=== PATIENT | female | born 1955 | race Two or more races ===

== ENCOUNTER 2016-09-26 20:11 | Inpatient (IN) | payer OTHER ==
[~2016-09-26] VITALS: Ht 162.6 cm; Wt 99.8 kg
[2016-09-26] MEDS ORDERED: Glucagon 1mg Inj ONE (20:24)
[2016-09-26 20:25] VITALS: BP 35/14
[2016-09-26 20:30] VITALS: BP 54/45
[2016-09-26] MEDS ORDERED: EPINEPHrine 1mg/10ml carp IV ONE (20:44)
[2016-09-26] MEDS ORDERED: EPINEPHrine 30ml ONE (20:44)
[2016-09-26 20:54] LABS: MEAN CORPUSCULAR HEMOGLOBIN 31.9 PG (27.0-31.0); MEAN CORPUSCULAR HGB CONC 30.5 G/DL (32.0-36.0); MEAN CORPUSCULAR VOLUME 105 FL (80-99); MEAN PLATELET VOLUME 8.4 FL (6.5-10.1); PLATELET COUNT 108 K/UL (150-450); RED BLOOD COUNT 4.36 M/UL (4.20-5.40); RED CELL DISTRIBUTION WIDTH 21.4 % (11.6-14.8)
[2016-09-26] MEDS ORDERED: Levophed 4mg/4mL Inj IV ONE ×2 (20:59→21:18)
[2016-09-26 21:00] VITALS: BP 44/32
[2016-09-26 21:03] LABS: INR 1.3 (0.9-1.1); PROTHROMBIN TIME 13.8 SEC (9.30-11.50)
[2016-09-26 21:07] LABS: ALBUMIN/GLOBULIN RATIO 0.4 (1.0-2.7); CALCIUM 8.3 mg/dL (8.6-10.2); CREATININE 1.8 mg/dL (0.5-0.9); GLOMERULAR FILTRATION RATE 28.6 mL/min (>60); TOTAL PROTEIN 4.4 g/dL (6.6-8.7); TROPONIN I < 0.30 ng/mL (<=0.30)
[2016-09-26] MEDS ORDERED: Lidocaine 1% Plain 30 ml INJ ONE (21:27)
[2016-09-26 21:29] LABS: CKMB 2.4 ng/mL (< 3.8); POTASSIUM 6.2 mEQ/L (3.4-4.9)
[2016-09-26] MEDS ORDERED: DOPAMINE 400 MG/10 ML IV ONE (21:46)
--- NOTE | 2016-09-26 21:53 | Emergency Room Report ---
History of Present Illness General Chief Complaint: Altered Level of Consciousness Source: EMS Present Illness HPI 60 YO M BIBEMS for 3 days of AMS. Family not reliable historians. Patient initially not responsive to EMS, glucose 30. Was given amp dextrose and glucagon by EMS with improvement to 60. Patient became a little more alert. History of DM on paperwork with EMS. No other family bedside in ED to provide additional info. Allergies: Coded Allergies: No Known Allergies (Unverified , 09/26/16) Patient History Past Medical History: DM Past Surgical History: unable to obtain Pertinent Family History: unable to obtain Now: No Nursing Documentation-PMH Past Medical History: No History, Except For Hx Hypertension: Yes Hx Diabetes: Yes Review of Systems All Other Systems: limited - unable to obtain d/t AMS Physical Exam Vital Signs Date Time Temp Pulse Resp B/P Pulse Ox O2 Delivery O2 Flow Rate FiO2 09/26/16 20:13 105 25 35/14 87 Non-Rebreather 15.0 Sp02 EP Interpretation: reviewed, abnormal General Appearance: severe distress, lethargic, obese Head: normocephalic, atraumatic Eyes: bilateral eye EOMI, bilateral eye PERRL ENT: normal ENT inspection, no angioedema, normal voice, other - blood in oropharynx Neck: normal inspection, full range of motion, supple, no meningismus, no bony tend Respiratory: normal inspection, lungs clear, normal breath sounds, no rhonchi, no respiratory distress, no retraction, no accessory muscle use, no wheezing Cardiovascular #1: regular rate, rhythm, no edema, no gallop, no JVD, tachycardia Gastrointestinal: normal inspection, normal bowel sounds, non tender, soft, no guarding, no hernia Genitourinary: no CVA tenderness Musculoskeletal: normal inspection, back normal, normal range of motion, Charlie' s Sign negative Neurologic: normal inspection, alert, responsive, other - repeatedly moaning, moving all extremities. Not following commands Skin: no rash Procedures Critical Care Time Critical Care Time CC time 60 minutes Care for a 60 YO F BIBEMS with AMS. History of DM on metformin VS notable for tachycardia, hypotension, hypoxia. Glucose 30 in field. 60 here. DDx includes CVA, ACS, infection, metabolic abnormality, toxic ingestion, polysubstance abuse Patient is disoriented, moaning, no obvious sign of trauma. No other info available. No family are present Comprehensive physical exam completed, atraumatic. Unreliable history from patient. Labs include toxicology and chem panel, CT head when stable, EKG 12 lead and constant cardiac rhythm strip monitoring, IV established. Patient required emergent intubation EKG reveals sinus tachycardia without QRS abnormalities. Patient hypotensive, started on levophed which was maxed out, and dopamine, which was also maxed out - given thru central line empiric Abx given for sepsis Physician spent 60 minutes of direct critical care time monitoring patient's respiratory, cardiac and neurological status, reassessment, review of imaging, labs and discussion with attending hospitalist. Does not include procedures Central Line Central Line : Consent: Emergent Central Line Lumen: triple Maximal Sterile Barrier Tech: yes cap, yes mask, yes sterile gown, yes sterile gloves, yes large sterile sheet, yes hand hygiene, yes chlorhexidine prep No Max Barrier Tech Because: emergency insertion Central Line Postion: femoral (L) Complications: none Central Line Post Position: sutured, good blood return, position confirmed w / CXR Attempts: One Patient Tolerated: Well Complications: None Intubation Intubation : Consent: Emergent Intubation Method: orotracheal Tube Size (cm): 7.5 Medications: Etomidate, Rocuronium Breath Sounds after Intubation: equal Intubation Complications: no complications Post Intubation Xray: Yes Attempts: One Patient Tolerated: Well Complications: None Medical Decision Making Diagnostic Impression: Primary Impression: Hypoglycemia Additional Impressions: Hypotension Qualified Codes: I95.9 - Hypotension, unspecified Hyperkalemia SHIVANI (acute kidney injury) Altered mental status Qualified Codes: R41.0 - Disorientation, unspecified ER Course Labs: Acute respiratory acidosis with hypercarbia. No leuks. H&H stable. Glucose now stable. Troponin 0. CXR: Possible left sided PNA. ET tube in position ECG is sinus tachycardia Patient required emergent intubation for AMS/hypoxia. Required Central line for pressors - maxed out on levophed and dopamine Very poor prognosis Possible CVA but unstable for CT head at this time Endorsed to Dr Car at 1009pm for ICU EKG Diagnostic Results Rate: tachycardiac Rhythm: NSR ST Segments: no acute changes ASA given to the pt in ED: No Rhythm Strip Diag. Results EP Interpretation: yes Rate: 112 Rhythm: NSR, no PVC's, no ectopy Chest X-Ray Diagnostic Results EP Interpretation: Yes Findings: no pneumothorax, other - Cardiomegaly, ?lef sided effusion vs PNA. ET tube in satisfactory position Number of Views: 1 Last Vital Signs Date Time Temp Pulse Resp B/P Pulse Ox O2 Delivery O2 Flow Rate FiO2 09/26/16 21:20 44/32 09/26/16 20:13 105 25 87 Non-Rebreather 15.0 Status: improved Disposition: ADMITTED INPATIENT Condition: Critical Referrals: [facility],REFERRING (PCP) NOAH CONNELL M.D. Sep 26, 2016 21:53
[2016-09-26 21:56] LABS: ABG PCO2 55.7 mmHg (35.0-45.0)
[2016-09-26 21:57] LABS: ABG ALLEN TEST POSITIVE; ABG BASE EXCESS -21.5
[2016-09-26 21:59] LABS: LYMPHOCYTES % (MANUAL) 12 % (20-45); NEUTROPHILS % (MANUAL) 83 % (45-75); TOTAL CELLS COUNTED 100
[2016-09-26 22:00] VITALS: BP 102/44
[2016-09-26 22:00] LABS: BAND NEUTROPHILS % (MANUAL) 0 % (0-8); BASOPHILS % (MANUAL) 0 % (0-2); EOSINOPHILS % (MANUAL) 0 % (0-3); PLATELET ESTIMATE DECREASED; PLATELET MORPHOLOGY NORMAL
[2016-09-26] MEDS ORDERED: Sodium Polystyrene Sulfonate Enema RECTAL ONE (22:00)
[2016-09-26] MEDS ORDERED: DOPamine 400mg/250ml 250 ML IV SCH (22:00)
[2016-09-26] MEDS ORDERED: Piperacillin/Tazobactam 3.375 GM in NS 110 ML IVPB ONE (22:00)
[2016-09-26] MEDS ORDERED: Calcium Gluconate 10% 2 GM in NS 110 ML IVPB ONE (22:00)
[2016-09-26] MEDS ORDERED: Vancomycin 1.5gm/D5W 300ml 325 ML IVPB ONE (22:00)
[2016-09-26] MEDS ORDERED: Calcium Gluconate 1gm/10ml vial ONE ×2 (22:02→22:13)
[2016-09-26] MEDS ORDERED: Sodium Polystyrene Sulfonate 15gm Powder ONE ×2 (22:25→22:26)
[2016-09-26 22:30] VITALS: BP 60/47
[2016-09-26] MEDS ORDERED: Morphine Sulfate 4mg/ml Inj IVP PRN (22:30)
[2016-09-26] MEDS ORDERED: LORazepam Inj 2mg/ml 1ml IV PRN (22:30)
[2016-09-26] MEDS ORDERED: DuoNeb 0.5-3(2.5)mg/3ml neb HHN PRN (22:30)
[2016-09-26] MEDS ORDERED: Miralax 17gm pkt ORAL PRN (22:30)
[2016-09-26] MEDS ORDERED: Zosyn 3.375gm inj ONE (22:47)
[2016-09-26 22:58] LABS: APPEARANCE,URINE SLIGHTLY CLOUDY; KETONES,URINE NEGATIVE (NEGATIVE); LEUKOCYTE ESTERASE ,URINE 2+ (NEGATIVE); NITRITE,URINE NEGATIVE (NEGATIVE); PH,URINE 5 (4.5-8.0); PROTEIN,URINE 3+ (NEGATIVE); UROBILINOGEN,URINE 4 MG/DL (0.0-1.0)
[2016-09-26 23:18] LABS: BACTERIA,URINE MODERATE /HPF; SQUAMOUS EPITHELIAL CELL,UR MANY /LPF (NONE/OCC); WBC,URINE 15-20 /HPF (0 - 2)
[2016-09-26 23:19] LABS: ICTOTEST POS
[2016-09-26 23:41] LABS: ABG BASE EXCESS -25.3; ABG PCO2 45.3 mmHg (35.0-45.0)
[2016-09-26 23:42] LABS: ABG ALLEN TEST POSITIVE
[2016-09-26] MEDS ORDERED: Sodium Bicarbonate 8.4% 50ml Inj IV ONE (23:45)
[2016-09-26] MEDS ORDERED: Vancomycin 1 GM in D5W 275 ML IV SCH (23:45)
[2016-09-26] MEDS ORDERED: Amikacin 750 MG in NS 110 ML IV SCH (23:45)
[2016-09-26] MEDS ORDERED: Ertapenem 1 GM in NS 55 ML IV SCH (23:45)
[2016-09-26] MEDS ORDERED: Sodium Bicarbonate 150 ML in D5W 1000ml 1,000 ML IV SCH ×4 (23:45)
[2016-09-27] VITALS: BP 61/43
[2016-09-27] MEDS ORDERED: Levophed 4mg/4mL Inj IV ONE (00:09)
[2016-09-27] MEDS ORDERED: Amikacin Rx to dose MISC PRN (00:15)
[2016-09-27] MEDS ORDERED: Amikacin 750 MG in NS 110 ML IV ONE (00:30)
[2016-09-27 00:40] VITALS: BP 0/0
--- NOTE | 2016-09-27 02:58 | Emergency Room Report ---
Physical Exam Vital Signs Date Time Temp Pulse Resp B/P Pulse Ox O2 Delivery O2 Flow Rate FiO2 09/26/16 20:13 105 25 35/14 87 Non-Rebreather 15.0 09/26/16 20:25 103.0 09/26/16 20:30 100 Medical Decision Making Diagnostic Impression: Primary Impression: Hypoglycemia Additional Impressions: Altered mental status Qualified Codes: R41.0 - Disorientation, unspecified SHIVANI (acute kidney injury) Hypotension Qualified Codes: I95.9 - Hypotension, unspecified Hyperkalemia Cardiac arrest ER Course This patient was admitted to the ICU for hypoglycemic coma and septic shock and UTI. She was on 2 pressures, maxed out. She was just in the ICU when she lost the pulse. A CODE BLUE was called. I responded. Patient was in PEA rhythm. She received a total of 3 rounds of epinephrine. She remained in PEA and then asystole. The code was called and patient pronounced at 00:51 AM. I did discuss patient prognosis with family in the ER and again in the ICU. They wanted to make her comfortable at the end of the code. Last Vital Signs Date Time Temp Pulse Resp B/P Pulse Ox O2 Delivery O2 Flow Rate FiO2 09/27/16 00:40 0 0/0 0 Ambu-Bag 100 09/27/16 00:05 100.4 107 15.0 Disposition: ADMITTED INPATIENT Condition: Referrals: [facility],REFERRING (PCP) GALLITO SCHMIDT M.D. Sep 27, 2016 02:58
[2016-09-27] MEDS ORDERED: Ertapenem 500mg ivpb (q24h) IV SCH ×2 (03:00)
[2016-09-27] MEDS ORDERED: EPINEPHrine 1mg/10ml carp IV ONE (03:18)
[2016-09-27] MEDS ORDERED: Etomidate 40mg/20ml Inj IV ONE ×2 (03:18)
[2016-09-27] MEDS ORDERED: Zemuron 50mg/5ml Inj IV ONE ×2 (03:18)
[2016-09-27] MEDS ORDERED: Heparin 5000 units/ml inj SUBQ SCH (09:00)
--- NOTE | 2016-09-27 11:33 | Diagnostic Imaging Report ---
Indication: Chest pain, status post central venous catheter placement Technique: One view of the chest Comparison: One hour earlier Findings: Interim placement of a left jugular central venous catheter, tip of which projects at the level of the cavoatrial junction. No pneumothorax demonstrated. Bilateral pleural effusions and pulmonary congestive changes are stable. Stable satisfactory position of endotracheal tube Impression: Status post left jugular central venous catheter placement, no radiographically evident complication Otherwise stable over one hour, findings as described
--- NOTE | 2016-09-27 18:08 | History & Physical ---
History and Physical History & Physicial Pt was brought in by paramedics from home with CC of ALCHENTE. Her BP on presentation was 40/30. she was intubated and started on Pressors. She was admitted to ICU. On arrival to icu, she had a cardica arrest and all effort to survive her were unsuccessful. I never got to see her. DOLLY GARCIA Sep 27, 2016 18:08
[2016-09-27] MEDS ORDERED: Vancomycin 1250mg/D5W 275ml IVPB SCH ×2 (22:00)
--- NOTE | 2016-09-28 12:22 | Discharge Summary ---
Discharge Summary Hospital Course Date of Admission Sep 26, 2016 at 21:30 Date of Discharge Sep 27, 2016 at 03:19 Admitting Diagnosis hypoglycemia/Altered mental status HPI Donna Good is a 60 year old female who was admitted on Sep 26, 2016 at 21:30 for Hypoglycemia,Altered Mental Status Hospital Course [id number] Discharge Discharge Disposition Patient Discharge Diagnoses: Jihan Sainz NP Sep 28, 2016 12:22
--- NOTE | 2016-09-29 01:19 | Discharge Summary 2 SIG ---
DATE OF ADMISSION: 09/26/2016 DATE OF DISCHARGE: 09/27/2016 BRIEF SUMMARY: The patient is an unfortunate 60-year-old female, who was brought in by EMS secondary to three days of altered level of consciousness. The patient was nonresponsive at ED. Glucose was 30 and was given an amp of dextrose and glucagon by the paramedics with improvement. The patient became a little bit more alert. She has history of diabetes. On arrival to ED, she was hypotensive, systolic BP 35. She was orally intubated and central line was placed in on the left femoral. Chest x-ray showed possible left-sided pneumonia. She was started on pressors, Levophed, and dopamine and was admitted to ICU. On arrival to ICU, the patient continued to deteriorate. Code Blue was called. The patient was in PEA. Resuscitative efforts failed and the patient remained in the PEA and asystole. Family wanted to make her comfortable and the code ended. The patient eventually . FINAL DIAGNOSES: 1. Cardiac arrest. 2. Acute respiratory failure requiring intubation. 3. Septic shock. 4. Urinary tract infection. 5. Acute kidney injury. 6. Hypoglycemia. 7. Acute toxic metabolic encephalopathy. 8. Palliative/comfort care. Pam Car M.D. I have been assigned to dictate discharge summary on this account and I was not involved in the patient's management. Jihan Sainz N.P. DR: JESSICA JOB#: [id number] CC: BARBARA
--- NOTE | 2016-10-05 13:41 | Cardiology Report ---
APPROVED REPORT EKG Measurement Heart [id number] Sinus tachycardia Otherwise normal ECG
--- NOTE | 2016-10-09 14:10 | Diagnostic Imaging Report ---
Indication: Chest pain Technique: One view of the chest Comparison: none Findings: There is an endotracheal tube, tip projected approximately 3 cm above the jonathan. There is generalized mild interstitial congestion. There are bilateral pleural effusions and bilateral basilar atelectatic changes. Impression: Satisfactory endotracheal intubation Bilateral congestive changes, pleural effusions, and bilateral basilar atelectasis
== END 2016-09-27 03:19 | disposition expired | DRG 720 ==
LOC: EDBD 20:11 → EMR 20:55 → ICU 21:30 → EDBEDREQ 22:11
PROC: 0BH17EZ Insertion of Endotracheal Airway into Trachea, Via Natural or Artificial Opening (ICD-10-PCS; principal; 2016-09-26)
PROC: 5A1935Z Respiratory Ventilation, Less than 24 Consecutive Hours (ICD-10-PCS; 2016-09-26)
PROC: 06HN33Z Insertion of Infusion Device into Left Femoral Vein, Percutaneous Approach (ICD-10-PCS; 2016-09-26)
PROC: 3E033XZ Introduction of Vasopressor into Peripheral Vein, Percutaneous Approach (ICD-10-PCS; 2016-09-26)
PROC: 5A12012 Performance of Cardiac Output, Single, Manual (ICD-10-PCS; 2016-09-27)
DX: A41.9 Sepsis, unspecified organism (principal); J96.01 Acute respiratory failure with hypoxia; R65.21 Severe sepsis with septic shock; G92 Toxic encephalopathy; N17.9 Acute kidney failure, unspecified; J18.9 Pneumonia, unspecified organism; I95.9 Hypotension, unspecified; N39.0 Urinary tract infection, site not specified; Z51.5 Encounter for palliative care; E11.649 Type 2 diabetes mellitus with hypoglycemia without coma; R00.0 Tachycardia, unspecified; E87.5 Hyperkalemia
CPT/HCPCS: 36415; 36600; 71010; 80053; 80300; 81003; 82550; 82553; 82803; 83690; 84484; 85007; 85025; 85610; 85730; 86850; 86900; 86901; 87081; 87086; 92950; 93005; 94002; J0171